=== PATIENT | female | born 1975 | race Hispanic/Latino ===

== ENCOUNTER 2016-11-23 23:15 | Observation (INO) | payer OTHER ==
--- NOTE | 2016-11-23 23:33 | ED PDOC ---
Arrival/HPI - History of Present Illness Time/Duration: 4-6 hours Symptom Onset: Gradual Symptom Course: Unchanged Severity Level: Mild <Misael Kong - Last Filed: 11/24/16 03:11> - General Historian: Patient <Yaz Barriga - Last Filed: 11/24/16 04:28> - General Chief Complaint: GI Problem Time Seen by Provider: 11/23/16 23:25 - History of Present Illness Narrative History of Present Illness (Text): 11/24/16 00:02 41 year old F presents to the emergency depart complaining of diarrhea, abd pain , and vomiting. Pt states recurrent episodes of acute-onset diarrhea followed by dizziness/lightheadedness and occasional vomiting. Pt reports have normal home cooked meal when suddenly had multiple episodes of diarrhea. Pt took peptobismol and ate a banana to try and relieve the diarrhea and abd pain w/ no effect. Pt states she then began to feel dizzy and nauseous so she laid down. When symptoms did not improve, pt had call 911 for hospital evaluation. Pt has 1 episode NBNB vomiting in the ambulance. Pt now feels better after vomiting and fluid bolus. Pt denies F/C, CP, SOB, dysuria, frequency, urgency. (Yaz Barriga) Past Medical History - Provider Review Nursing Documentation Reviewed: Yes - Infectious Disease Hx of Infectious Diseases: None - Tetanus Immunization Tetanus Immunization: Unknown - Past Medical History Past Medical History: No Previous - Psychiatric Hx Depression: No Hx Emotional Abuse: No Hx Physical Abuse: No Hx Substance Use: No - Surgical History Hx Section: Yes - Anesthesia Hx Anesthesia: Yes Hx Anesthesia Reactions: No Hx Malignant Hyperthermia: No - Suicidal Assessment Feels Threatened In Home Enviroment: No <Yaz Barriga - Last Filed: 11/24/16 04:28> Family/Social History - Physician Review Nursing Documentation Reviewed: Yes Family/Social History: No Known Family HX Smoking Status: Former Smoker Hx Alcohol Use: Yes Hx Substance Use: No Hx Substance Use Treatment: No <Yaz Barriga - Last Filed: 11/24/16 04:28> Allergies/Home Meds <Misael Kong - Last Filed: 11/24/16 03:11> <Yaz Barriga - Last Filed: 11/24/16 04:28> Allergies/Adverse Reactions: Allergies No Known Allergies Allergy (Verified 09/29/14 00:12) Review of Systems - Review of Systems Gastrointestinal: Abdominal Pain, Diarrhea, Nausea, Vomiting <DilanMisael - Last Filed: 11/24/16 03:11> - Physician Review All systems were reviewed & negative as marked: Yes - Review of Systems Constitutional: absent: Fevers Respiratory: absent: SOB <Yaz Barriga - Last Filed: 11/24/16 04:28> Physical Exam <DilanMisael - Last Filed: 11/24/16 03:11> Vital Signs Reviewed: Yes Temperature: Afebrile Blood Pressure: Normal Pulse: Regular Respiratory Rate: Normal Appearance: Positive for: Non-Toxic, Comfortable Pain Distress: None Mental Status: Positive for: Alert and Oriented X 3 - Systems Exam Head: Present: Atraumatic, Normocephalic Pupils: Present: PERRL Extroacular Muscles: Present: EOMI Conjunctiva: Present: Normal Mouth: Present: Moist Mucous Membranes Respiratory/Chest: Present: Clear to Auscultation, Good Air Exchange. No: Respiratory Distress, Accessory Muscle Use Cardiovascular: Present: Regular Rate and Rhythm, Normal S1, S2. No: Murmurs Abdomen: Present: Normal Bowel Sounds. No: Tenderness, Distention, Peritoneal Signs, Rebound, Guarding Upper Extremity: Present: Normal Inspection Lower Extremity: Present: Normal Inspection Neurological: Present: GCS=15, Speech Normal Skin: Present: Warm, Dry, Normal Color Psychiatric: Present: Alert, Oriented x 3, Normal Insight, Normal Concentration <Ricardo Barrigaanda - Last Filed: 11/24/16 04:28> Vital Signs Temp Pulse Resp BP Pulse Ox 11/23/16 23:26 98.2 F 92 H 18 107/67 99 Medical Decision Making <DilanMisael - Last Filed: 11/24/16 03:11> - Lab Interpretations I have reviewed the lab results: Yes Interpretation: Abnormal lab values <Ricardo Barrigaanda - Last Filed: 11/24/16 04:28> ED Course and Treatment: Patient Seen With Resident: In agreement with resident note which contains more details about the patient. Patient was seen and evaluated with resident. Came up with plan and treatment together. (Misael Kong) 11/24/16 00:34 41 year old F w/ diarrhea and abd pain - CBC, CMP, Lipase - Blood Cx - VBG - Zofran, Protonix - NS bolus (Yaz Barriga) - Lab Interpretations Lab Results: 11/24/16 00:15 11/24/16 00:15 Lab Results 11/24/16 03:13: Urine Color Yellow, Urine Appearance Sl cloudy, Urine pH 6.0, Ur Specific [place] 1.020, Urine Protein Trace H, Urine Glucose (UA) Negative, Urine Ketones 15 H, Urine Blood Negative, Urine Nitrate Negative, Urine Bilirubin Small H, Urine Urobilinogen 0.2, Ur Leukocyte Esterase Negative, Urine RBC 0 - 2, Urine WBC 0 - 2, Ur Epithelial Cells 0 - 2, Urine Bacteria Few 11/24/16 02:10: Lactic Acid 0.8 11/24/16 00:15: pO2 49, VBG pH 7.49 H, VBG pCO2 32.0 L, VBG HCO3 24.4, VBG Total CO2 25.4, VBG O2 Sat (Calc) 90.1 H, VBG Base Excess 1.7, VBG Potassium 4.8 , Sodium 138.0, Chloride 106.0, Glucose 113 H, Lactate 2.5 H, FiO2 21.0, Venous Blood Potassium 4.8 11/24/16 00:15: Sodium 139, Chloride 102, Potassium 4.2, Carbon Dioxide 22, Anion Gap 19, BUN 16, Creatinine 0.7, Est GFR ( Amer) > 60, Est GFR (Non- Af Amer) > 60, Random Glucose 105, Calcium 10.3, Total Bilirubin 0.5, AST 37, ALT 41, Alkaline Phosphatase 82, Total Protein 8.3, Albumin 5.0 H, Globulin 3.3 , Albumin/Globulin Ratio 1.5, Lipase 88 11/24/16 00:15: WBC 18.1 H D, RBC 4.73, Hgb 14.5, Hct 41.2, MCV 87.1, MCH 30.7, MCHC 35.2, RDW 12.4, Plt Count 338, MPV 10.2, Gran % 69.0 H, Lymph % (Auto) 23.4 , [place] % (Auto) 6.6 H, Eos % (Auto) 0.8 L, Baso % (Auto) 0.2, Gran # 12.48 H, Lymph # 4.2 H, [place] # 1.2 H, Eos # 0.1, Baso # 0.03 - RAD Interpretation Narrative RAD Interpretations (Text): 11/24/16 04:25 CT A/P FINDINGS: Lower thorax: No acute findings. ABDOMEN: Liver: Benign-appearing hepatic hypodensities measure up to 12 mm in the right lobe Gallbladder and bile ducts: Unremarkable. No calcified stones. No ductal dilation. Pancreas: Unremarkable. No mass. No ductal dilation. Spleen: Unremarkable. No splenomegaly. Adrenals: Unremarkable. No mass. Kidneys and ureters: Unremarkable. No solid mass. No hydronephrosis. Stomach and bowel: Equivocal small bowel wall thickening may reflect a nonspecific enteritis, either infectious or inflammatory. Mild dilatation of small bowel loops may reflect a nonspecific associated ileus. Appendix: No findings to suggest acute appendicitis. PELVIS: Bladder: Urinary bladder wall thickening compatible with cystitis. Reproductive: Unremarkable as visualized. ABDOMEN and PELVIS: Intraperitoneal space: Unremarkable. No free air. No significant fluid collection. Bones/joints: Hemitransitional vertebral body noted at the lumbosacral junction No acute fracture. No dislocation. Soft tissues: Fat containing umbilical hernia is noted. Vasculature: Unremarkable. No abdominal aortic aneurysm. Lymph nodes: Shotty nonspecific retroperitoneal lymphadenopathy is noted. Nonspecific small mesenteric lymph nodes are noted. IMPRESSION: 1. Equivocal small bowel wall thickening may reflect a nonspecific enteritis, either infectious or inflammatory. Mild dilatation of small bowel loops may reflect a nonspecific associated ileus. 2. Urinary bladder wall thickening compatible with cystitis. (Yaz Barriga) Radiology Orders: 11/24/16 01:26 ABD & PELVIS IV CONTRAST ONLY [CT] Stat - Medication Orders Current Medication Orders: Discontinued Medications Sodium Chloride (Sodium Chloride 0.9%) 1,000 mls @ 1,000 mls/hr IV .Q1H STA Stop: 11/24/16 01:17 Last Admin: 11/24/16 00:46 Dose: 1,000 mls/hr Vancomycin HCl (Vancomycin 1gm) 1 gm in 250 mls @ 167 mls/hr IVPB STAT STA PRN Reason: Protocol Stop: 11/24/16 02:56 Last Admin: 11/24/16 02:26 Dose: 167 mls/hr Piperacillin Sod/Tazobactam Sod (Zosyn 3.375 In Ns 100ml) 100 mls @ 200 mls/hr IVPB STAT STA PRN Reason: Protocol Stop: 11/24/16 01:57 Last Admin: 11/24/16 01:41 Dose: 200 mls/hr Sodium Chloride (Sodium Chloride 0.9%) 1,000 mls @ 999 mls/hr IV .Q1H1M STA Stop: 11/24/16 03:13 Last Admin: 11/24/16 02:26 Dose: 999 mls/hr Iohexol (Omnipaque 350 100 Ml) Confirm Administered Dose 350 mg .ROUTE .STK-MED ONE Stop: 11/24/16 03:11 Ondansetron HCl (Zofran Inj) 4 mg IVP STAT STA Stop: 11/24/16 00:19 Last Admin: 11/24/16 00:47 Dose: 4 mg Pantoprazole Sodium (Protonix Inj) 40 mg IVP STAT STA Stop: 11/24/16 00:19 Last Admin: 11/24/16 00:47 Dose: 40 mg - PA / SANITATION MANAGER / Resident Statement / has reviewed & agrees with the documentation as recorded. / has examined the patient and agrees with the treatment plan. <Misael Kong - Last Filed: 11/24/16 03:11> Disposition/Present on Arrival <Misael Kong - Last Filed: 11/24/16 03:11> - Present on Arrival Any Indicators Present on Arrival: No History of DVT/PE: No History of Uncontrolled Diabetes: No Urinary Catheter: No History of Decub. Ulcer: No History Surgical Site Infection Following: None - Disposition Have Diagnosis and Disposition been Completed?: Yes Disposition Time: 04:28 <Yaz Barriga - Last Filed: 11/24/16 04:28> - Disposition Diagnosis: Leukocytosis, Sepsis, Gastritis Disposition: HOSPITALIZED Condition: STABLE Discharge Instructions (ExitCare): Sepsis (ED) Referrals: [facility] Laurie Washburn, [Non-Staff] - Follow up with primary
[2016-11-24] MEDS ORDERED: Sodium Chloride 0.9% 1,000 ML IV STA ×3 (00:18→03:14)
[2016-11-24 00:42] LABS: ADD MANUAL DIFF? NO
[2016-11-24 00:48] LABS: BASO # 0.03 K/mm3 (0.0-2.0); BASO % 0.2 % (0.0-3.0); EOS # 0.1 (0.0-0.7); EOS % 0.8 % (1.5-5.0); GRAN # 12.48 (1.4-6.5); HEMATOCRIT 41.2 % (36.0-48.0); LYMPH # 4.2 (1.2-3.4); LYMPH % 23.4 % (22.0-35.0); MEAN CELL VOLUME 87.1 fL (80.0-105.0); MEAN CORPUSCULAR HEMOGLOBIN 30.7 pg (25.0-35.0); MEAN CORPUSCULAR HGB CONC 35.2 g/dl (31.0-37.0); MEAN PLATELET VOLUME 10.2 fl (7.0-11.0); MONO # 1.2 (0.1-0.6); MONO % 6.6 % (1.0-6.0); PLATELET COUNT 338 10^3/uL (120.0-450.0); RED CELL DISTRIBUTION WIDTH 12.4 % (11.5-14.5); WHITE BLOOD COUNT 18.1 10^3/ul (4.5-11.0)
[2016-11-24 00:52] LABS: VENOUS BLOOD GAS BASE EXCESS 1.7 mmol/L (0.0-2.0); VENOUS BLOOD PH 7.49 (7.32-7.43)
[2016-11-24 00:58] LABS: ALB/GLOB RATIO 1.5 (1.1-1.8); ALKALINE PHOSPHATASE 82 U/L (38-133); ALT/SGPT 41 U/L (7-56); AST/SGOT 37 U/L (15-39); BILIRUBIN,TOTAL 0.5 mg/dL (0.2-1.3); BLOOD UREA NITROGEN 16 mg/dL (7-21); CALCIUM 10.3 mg/dL (8.4-10.5); CARBON DIOXIDE 22 mmol/L (21-33); CHLORIDE 102 mmol/L (95-110); GFR AFRICAN-AMERICAN > 60; GLUCOSE,RANDOM 105 mg/dL (70-110); LIPASE 88 U/L (23-300); POTASSIUM 4.2 mmol/L (3.6-5.0); SODIUM 139 mmol/L (132-148); TOTAL PROTEIN 8.3 g/dL (5.8-8.3)
[2016-11-24] MEDS ORDERED: Vancomycin 1gm in NS 250ml 1 GM/250 ML BAG IVPB STA (01:27)
[2016-11-24] MEDS ORDERED: Piperacillin/Tazobact 3.375 gm 100 ML IVPB STA (01:28)
[2016-11-24] MEDS ORDERED: Iohexol 350 MG/100 ML VIAL ONE (03:10)
[2016-11-24 03:34] LABS: URINE BILIRUBIN SMALL (NEGATIVE); URINE BLOOD NEGATIVE (NEGATIVE); URINE GLUCOSE (UA) NEGATIVE (NEGATIVE); URINE KETONE 15 mg/dL (NEGATIVE); URINE LEUKOCYTE ESTERASE NEGATIVE Leu/uL (NEGATIVE); URINE PROTEIN TRACE mg/dL (<30 mg/dL); URINE UROBILINOGEN 0.2 E.U./dL (<1 E.U./dL)
[2016-11-24 03:39] LABS: URINE APPEARANCE SL CLOUDY (CLEAR); URINE COLOR YELLOW (YELLOW)
[2016-11-24 03:49] LABS: URINE BACTERIA FEW (NEG); URINE EPITHELIAL CELLS 0 - 2 /hpf (0-5); URINE RBC 0 - 2 /hpf (0-2); URINE WBC 0 - 2 /hpf (0-6)
[2016-11-24] MEDS ORDERED: metroNIDAZOLE IV 500 mg/100 ml 500 MG/100 ML BAG IVPB STA (04:25)
[2016-11-24] MEDS ORDERED: Sodium Chloride 0.9% 1,000 ML IV SCH (04:45)
[2016-11-24 06:43] VITALS: BP 119/79; PULSE 81; RESP 18; TEMP 97.8; BMI 24.0
[2016-11-24 08:04] VITALS: O2SAT 99
--- NOTE | 2016-11-24 08:15 | CT ---
PROCEDURE: CT Abdomen and Pelvis with contrast HISTORY: Vomiting COMPARISON: None. TECHNIQUE: CT scan of the abdomen and pelvis was performed after intravenous administration of contrast. Oral contrast was not administered. Coronal and sagittal reformatted images were obtained. Radiation dose: Total exam DLP = 419.37 mGy-cm. This CT exam was performed using one or more of the following dose reduction techniques: Automated exposure control, adjustment of the mA and/or kV according to patient size, and/or use of iterative reconstruction technique. FINDINGS: LOWER THORAX: The lung bases are clear. LIVER: The liver is normal in size and there is homogeneous enhancement. There are few scattered simple cysts, the largest in the right lobe measures 13 mm. No intrahepatic biliary ductal dilatation. GALLBLADDER AND BILE DUCTS: No calcified gallstones. PANCREAS: The pancreas is normal in size and there is homogeneous enhancement. No gross lesion or ductal dilatation. SPLEEN: The spleen is normal in size. Few tiny subcapsular low-attenuation lesions in the spleen are too small to characterize by CT criteria. ADRENALS: Both adrenal glands are normal in size without discrete nodule. KIDNEYS AND URETERS: Both kidneys are normal in size and there is homogeneous enhancement without focal mass or hydronephrosis. VASCULATURE: Grossly normal. No aortic aneurysm. BOWEL: There is mild dilatation of fluid-filled small bowel loops. There is fecalization of small bowel contents in the duodenum and proximal jejunal loops. The distal small bowel loops are normal in caliber. The colon is unremarkable. No evidence of bowel dilatation or obstruction. APPENDIX: The appendix is not distinctly identified however there are no inflammatory changes in the right lower quadrant PERITONEUM: No free fluid. No free air. LYMPH NODES: No enlarged lymph nodes. BLADDER: Decompressed however there is apparent moderate mural thickening of the bladder wall. REPRODUCTIVE: The uterus is normal in size. No adnexal masses. BONES: Within normal limits for the patient's age. OTHER FINDINGS: None. IMPRESSION: Mildly dilated fluid-filled mid small bowel loops and fecalization of contents in the duodenum and proximal jejunal loops may represent nonspecific infectious/inflammatory enteritis with chronic stasis. No evidence of bowel obstruction. Apparent moderate mural thickening of the urinary bladder wall is nonspecific and could be related to underdistention however cystitis cannot be excluded. Please correlate with urine analysis. A preliminary report was provided by [employer].
[2016-11-24] MEDS ORDERED: Pneumococcal 23-Valent Vaccine IM ONE (09:00)
[2016-11-24] MEDS ORDERED: cefTRIAXone 1 gm 100 ML IVPB SCH (12:45)
[2016-11-24] MEDS ORDERED: cefTRIAXone 1 gm 1 GM/100 ML BAG IVPB ONE (12:45)
[2016-11-24] MEDS ORDERED: metroNIDAZOLE IV 500 mg/100 ml 500 MG/100 ML BAG IVPB SCH (14:00)
--- NOTE | 2016-11-24 17:39 | CP.PCM.PN ---
Subjective - Date & Time of Evaluation Date of Evaluation: 11/24/16 Time of Evaluation: 17:36 - Subjective Subjective: pt was admitted for colitis gastroentritis wants to leave [facility].. Objective - Vital Signs/Intake and Output Vital Signs (last 24 hours): Temp Pulse Resp BP Pulse Ox 97.8 F 81 18 119/79 99 11/24/16 07:30 11/24/16 07:30 11/24/16 07:30 11/24/16 07:30 11/24/16 07:30 Intake and Output: 11/24/16 11/24/16 06:59 18:59 Intake Total 480 Balance 480 - Medications Medications: Current Medications Sodium Chloride (Sodium Chloride 0.9%) 1,000 mls @ 100 mls/hr IV .Q10H [facility] Last Admin: 11/24/16 04:50 Dose: 100 mls/hr Metronidazole (Flagyl) 500 mg in 100 mls @ 100 mls/hr IVPB Q8 ANDRE PRN Reason: Protocol Last Admin: 11/24/16 13:04 Dose: 100 mls/hr Ceftriaxone Sodium (Rocephin 1 Gram Ivpb) 1 gm in 100 mls @ 100 mls/hr IVPB DAILY ANDRE PRN Reason: Protocol Ondansetron HCl (Zofran Inj) 4 mg IVP Q6H PRN PRN Reason: Nausea/Vomiting Pantoprazole Sodium (Protonix Inj) 40 mg IVP DAILY [facility] - Constitutional Appears: No Acute Distress - Head Exam Head Exam: NORMOCEPHALIC - Eye Exam Eye Exam: Normal appearance Pupil Exam: PERRL - ENT Exam ENT Exam: Mucous Membranes Moist - Neck Exam Neck Exam: Full ROM - Respiratory Exam Respiratory Exam: NORMAL BREATHING PATTERN - Cardiovascular Exam Cardiovascular Exam: RRR, +S1, +S2 - GI/Abdominal Exam GI & Abdominal Exam: Soft, Normal Bowel Sounds - Rectal Exam Rectal Exam: Deferred - Extremities Exam Extremities Exam: Full ROM - Neurological Exam Neurological Exam: Alert, Awake, Oriented x3 - Psychiatric Exam Psychiatric exam: Normal Affect - Skin Skin Exam: Dry, Warm Assessment and Plan - Assessment and Plan (Free Text) Assessment: AMA. COLITIS. Plan: risk of recurrent symptoms dehydration sepsis explained to pt.
--- NOTE | 2016-11-24 20:00 | CP.PCM.CON ---
History of Present Illness - History of Present Illness History of Present Illness: Seen and examined earlier today. Chart was reviewed. Request for consult is for Elevated WBC/gastroeneritis. HPI: This is a 41 year old female who came to the hospital with acute onset of diarrhea yesterday. She started with abdominal cramps that prompted to have BM and initally the stool was formed and then became watery, no blood noted. She juvencio chills, had episode of vomiting but no hematemesis. She does not recall any contributing foods, had homemade food yesterday, on the weekend she had a green party for her son on Wednesday but didnt really eat anything and Wednesday had pasta. She recall having bouts of sudden diarrhea in the past x2, one in 2014 and in June 2016, but was not admitted. Normally ahs regular BM, does not note any bleeding. Denies weight loss, or loss of appetite, no acid reflux, dysuria or hematuria. Never had EGD/Colon. Ct scan abdomen done reporting inflammation small bowel, enteritis,ileus ? cystitis, simple liver cysts, larges 13 mm, patient states that she was told by her PCP in the past that she had liver cysts. Ct scan report was reviewed. PMH: Liver cyst per patient. SHX: x2 LMP: November 12, 2016 Social HX: denies smoking, etoh, drugs Allergies: NKDA MEDS: reviewed as per AUG FHX: noncontributory at this time ROS: systems reviewed with positive findings, see HPI Past Patient History - Infectious Disease Hx of Infectious Diseases: None - Tetanus Immunizations Tetanus Immunization: Unknown - Past Social History Smoking Status: Current Some Days Smoker - CARDIAC Hx Cardiac Disorders: No - PULMONARY Hx Respiratory Disorders: No - NEUROLOGICAL Hx Neurological Disorder: No - HEENT Hx HEENT Problems: No - RENAL Hx Chronic Kidney Disease: No - ENDOCRINE/METABOLIC Hx Endocrine Disorders: No - HEMATOLOGICAL/ONCOLOGICAL Hx Blood Disorders: No - INTEGUMENTARY Hx Dermatological Problems: No - MUSCULOSKELETAL/RHEUMATOLOGICAL Hx Musculoskeletal Disorders: No Hx Falls: No - GASTROINTESTINAL Hx Gastrointestinal Disorders: No - GENITOURINARY/GYNECOLOGICAL Hx Genitourinary Disorders: No - PSYCHIATRIC Hx Psychophysiologic Disorder: No Hx Substance Use: No - SURGICAL HISTORY Hx Surgeries: Yes () - ANESTHESIA Hx Anesthesia: Yes Hx Anesthesia Reactions: No Hx Malignant Hyperthermia: No Meds Allergies/Adverse Reactions: Allergies Allergy/AdvReac Type Severity Reaction Status Date / Time No Known Allergies Allergy Verified 09/29/14 00:12 Physical Exam - Constitutional Appears: No Acute Distress - Head Exam Head Exam: NORMAL INSPECTION - Eye Exam Eye Exam: Normal appearance, PERRL. absent: Scleral icterus - ENT Exam ENT Exam: Mucous Membranes Moist - Respiratory Exam Respiratory Exam: Clear to Auscultation Bilateral, NORMAL BREATHING PATTERN. absent: Respiratory Distress - Cardiovascular Exam Cardiovascular Exam: +S1, +S2 - GI/Abdominal Exam GI & Abdominal Exam: Normal Bowel Sounds, Soft. absent: Distended, Guarding, Organomegaly, Rebound, Tenderness - Extremities Exam Extremities exam: Positive for: pedal pulses present. Negative for: calf tenderness, pedal edema - Neurological Exam Neurological exam: Alert, CN II-XII Intact, Oriented x3 - Skin Skin Exam: Dry, Warm Results - Vital Signs Recent Vital Signs: Last Vital Signs Temp 97.8 F 11/24/16 07:30 Pulse 81 11/24/16 07:30 Resp 18 11/24/16 07:30 BP 119/79 11/24/16 07:30 Pulse Ox 99 11/24/16 07:30 - Labs Result Diagrams: 11/24/16 00:15 11/24/16 00:15 Assessment & Plan - Assessment and Plan (Free Text) Assessment: ASSESSMENT: Abdominal Pain Acute Diarrhea,consider gastroenteritis Leukocytosis ? Cystitis Liver cysts PLAN: start clear liquids continue Flagyl start Ceftriaxone urine culture PPI Pain mgt. Detail discussion with patient regarding having further GI FU when Discharged, pt states that she has had episodes of this nature in the past. Discuss that when she is discharged would benefit from further follow up outpatient, she goes to [facility]. Thank you for this consult and for allowing us to participate in your patient care. Seen and examined with Dr. Nuñez.
--- NOTE | 2016-11-24 20:04 | HP ---
HISTORY OF PRESENT ILLNESS: The patient is a 41-year-old who came to Emergency Room because of periu mbilical pain, intermittent diarrhea, feeling nauseous, having chills, complaining of headache, gener alized aches and pains. The patient states this has been going on almost for 2 years and she gets th juventino intermittent symptoms. She was never given any antibiotics and she never had workup. She denies any blood in the stool. She does not have any recent travel abroad. The patient relates these sympt oms started after she had childbirth. It is not related to any significant food intake. She does no t state that she lost any weight. PAST MEDICAL HISTORY: Significant for gastritis. ALLERGIES: She is not allergic to any medication. SOCIAL HISTORY: She is . She has 2 children. One is 2-1/2 months, one is 11. MEDICATIONS AT HOME: She takes omeprazole once in a while and Zofran as needed. REVIEW OF SYSTEMS: Significant for headache, dizziness, bloating, epigastric discomfort, heartburn. PHYSICAL EXAMINATION: GENERAL: She is awake and alert, communicative, anxious to go home. VITAL SIGNS: She is afebrile, pulse 81, respirations 18, blood pressure 119/79. LUNGS: Bilateral fair airflow, no rhonchi or crackle. HEART: S1, S2 audible. ABDOMEN: Soft, nontender. Slight periumbilical discomfort. No rebound, no guarding. NEUROLOGIC: The patient is awake and alert, able to communicate. LABORATORY DATA: WBC is 18.1, hemoglobin 14, hematocrit 41, platelets 338. Chemistry: Sodium 139, potassium 4.2, chloride 102, CO2 22, BUN 16, creatinine 0.7, blood sugar 105. LFTs are within normal limits. is 0.8. Urinalysis shows small bilirubin, ketones and trace protein. CT scan of the abdomen and pelvis, mildly dilated fluid filled mid small bowel loops and fecalization of contents i n the duodenum and proximal jejunum lobe, may represent nonspecific infection, inflammatory enteritis with chronic stasis. ASSESSMENT: Gastroenteritis, etiology unknown. Differential, irritable bowel syndrome, inflammatory bowel syndrome or infectious gastroenteritis. PLAN: We will continue her on IV fluids, clear liquids, continue her on Flagyl, order for stool spec imen. Awaiting GI evaluation by Dr. Nuñez. We will follow up electrolytes in a.m. Kaela Burgos MD cc: [phone] TT: 11/24/2016 20:04:15 rn
--- NOTE | 2016-11-24 20:41 | CON ---
DATE: 11/24/2016 ADDENDUM This is an addendum to the GI consultation report dictated by Vero Couch APN. The patient feels be tter. Her diarrhea has stopped. Her abdominal discomfort also has significantly improved. The anum ent's CT scan was reviewed. The patient does have dilated small bowel loops and some thickening. Th e patient did have episodes similarly in the past at least once a year. The differential diagnosis i n her case will be considered is infectious versus inflammatory bowel disease. The presentation is m ore suggestive of more of an infectious then is inflammatory bowel disease. The patient has never van d an endoscopy or colonoscopy. The reasonable approach is to consider this workup electively as an o utpatient. Meanwhile, patient has been on antibiotics and IV fluid hydration. We will continue that and advance her diet slowly based on the clinical response and course. Cornelia Nuñez MD cc: [id number] TT: 11/24/2016 20:41:01 Confirmation # [id number] Dictation # [id number] mn
[2016-11-25] MEDS ORDERED: cefTRIAXone 1 gm 1 GM/100 ML BAG IVPB SCH (10:00)
== END 2016-11-24 17:40 | disposition left against medical advice (07) ==
LOC: ED 23:15 → ERH 11-24 04:27 → 5RNO 11-24 05:56
PROVIDERS: ADMIT Internal Medicine; ATTEND Internal Medicine
DX: K52.9 Noninfective gastroenteritis and colitis, unspecified (principal); K29.70 Gastritis, unspecified, without bleeding; K76.89 Other specified diseases of liver
CPT/HCPCS: 74177; 80053; 81001; 82803; 83605; 83690; 85025; 87040; 96365; 96376; 99284; C9113; G0378; J0696; J2405; J2543; J7040; Q9967